=== PATIENT | female | born 1970 | race Caucasian/White ===

== ENCOUNTER → 2016-11-08 | Outpatient (CLI) | payer MEDICAID ==
[~2016-11-08] MED LIST: ALPR1T; Albuterol; BUTA-234 PO; CPR500T PO; CRS350T PO; DESV50TA PO; HYDR1TAB PO; LISI1TAB PO; LNS30CCR; MTP25TSR; NAPR-243 PO; NYST1POW15 TOP; OMEP-10 PO; PHEN200T16 PO; PREVACID; SRTR100T; SULF1TAB38 PO; [UNRECOGNIZED DRUG - CODE]
--- NOTE | 2016-11-08 15:49 | Diagnostic Imaging Report ---
PROCEDURE: MRI right joint upper extremity without contrast. TECHNIQUE: Multiplanar, multisequence non contrast-enhanced MRI of the right upper extremity was accomplished. INDICATION: Right shoulder pain. FINDINGS: There is no os acromiale or Hill-Sachs deformity. There is a longitudinal split tear seen within the long head of biceps tendon involving at least 4 cm of the tendon length prior to its horizontal course towards the biceps anchor at the labrum. This segment is less well defined although it appears that the tear is perhaps extending through this segment into the biceps anchor at the labrum itself. The labrum demonstrates increased signal in its superior segment concerning for tear. The supraspinatus and infraspinatus tendons demonstrate thickening and increased signal compatible with tendinosis and partial tear. There is tendinosis and intrasubstance tear in the subscapular tendon. The acromioclavicular joint demonstrates tiny inferior osteophytes. There is trace amount of fluid within the subacromial subdeltoid bursa. A small the glenohumeral joint effusion is seen. The muscle bulk and signal is within normal limits. IMPRESSION: 1. There is a longitudinal split tear involving the long head biceps tendon with possible extension into the biceps anchor at the labrum. Abnormal signal in the adjacent segments of the labrum is concerning for a SLAP tear. 2. 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 3. Rotator cuff tendinosis and intrasubstance partial tear. No full-thickness retracted tear. Dictated by: Dictated on workstation # [id number]
== END ==
LOC: RAD 14:02
PROVIDERS: ATTEND Nurse Practitioner Family
DX: S46.911A Strain of unspecified muscle, fascia and tendon at shoulder and upper arm level, right arm, initial encounter (principal); M75.91 Shoulder lesion, unspecified, right shoulder; X58.XXXA Exposure to other specified factors, initial encounter; Y99.8 Other external cause status
CPT/HCPCS: 73221

== ENCOUNTER 2017-03-06 16:48 | Emergency (ER) | payer MEDICAID ==
[~2017-03-06] VITALS: Ht 167.6 cm; Wt 99.8 kg
[2017-03-06] MEDS ORDERED: HYDR-3812 PO (17:23)
--- NOTE | 2017-03-06 17:23 | ED Lower Extremity ---
General Chief Complaint: Lower Extremity Stated Complaint: RT ANKLE INJ Nursing Triage Note: pt reports r ankle pain after tripping twice today. Nursing Sepsis Screen: No Definite Risk Source: patient, spouse Exam Limitations: no limitations History of Present Illness Time seen by provider: 17:17 Initial Comments 46-year-old female patient presents to the emergency department with complaints of twisting her ankle yesterday at her family member's house on a step. Also [place] it [place]. Complains of right ankle pain. Denies hitting her head or LOC. Patient is very drowsy. Spouse reports this is patient's usual state. Onset: other (yesterday and this afternoon) Pain/Injury Location: right ankle Method of Injury: twisted Modifying Factors: Worse With Movement Allergies and Home Medications Allergies Coded Allergies: No Known Drug Allergies (Verified , 12/11/07) Home Medications Alprazolam 1 Mg Tablet, BID, (Reported) Ciprofloxacin 500 Mg Tablet, 1 TAB PO BID, (Reported) Desvenlafaxine Succinate 50 Mg Tab.sr.24h, 1 PO DAILY, (Reported) Hctz/Lisinopril 1 Each Tablet, 1 EACH PO DAILY, (Reported) Hydrocodone Bit/Acetaminophen 1 Each Tablet, 1 EACH PO Q6HR PRN, #10 Ref 0 Prescribed by: IKER DE OLIVEIRA DO on 01/02/11 1546 Hydrocodone/Acetaminophen 1 Each Tablet, 1 EACH PO Q6H PRN for PAIN, #14 Ref 0 Prescribed by: GISSEL ARANDA on 03/06/17 1723 Metoprolol Succinate 25 Mg Tab.sr.24h, DAILY, (Reported) Nystatin 1 Each Powder.ea., 0 TOP BID PRN, (Reported) SPRINKLE ON AFFECTED AREA Omeprazole 20 Mg Capsule.dr, 20 MG PO DAILY, (Reported) Trimethoprim/Sulfamethoxazole 1 Ea Tablet, 1 EA PO BID, (Reported) [Albuterol ] , (Reported) 2 PUFFS QID Constitutional: no symptoms reported Respiratory: no symptoms reported Cardiovascular: no symptoms reported Musculoskeletal: see HPI, No back pain, joint pain (rt ankle), joint swelling ( rt ankle), No neck pain Skin: No change in color Psychiatric/Neurological: Denies Headache, Denies Numbness, Denies Paresthesia , Denies Tingling, Denies Weakness All Other Systems Reviewed Negative Unless Noted: Yes (Negative excepted noted.) Past Akbzvww-Tvkqmo-Ulmbfd Hx Patient Social History Alcohol Use: Denies Use Recreational Drug Use: No Smoking Status: Current Everyday Smoker Type Used: Cigarettes Recent Foreign Travel: No Contact w/Someone Who Travel: No Recent Infectious Disease Expo: No Recent Hopitalizations: Yes (childbirth x6) Physical Abuse: No Sexual Abuse: No Mistreated: No Fear: No Immunizations Up To Date Date of Pneumonia Vaccine: Mar 30, 2008 Date of Influenza Vaccine: Feb 27, 2011 Surgeries History of Surgeries: Yes (c-sections x 6, lithrotripsy) Respiratory History of Respiratory Disorde: Yes Cardiovascular History of Cardiac Disorders: Yes (went to ED for rapid heart beat-told she was having PVC's) Neurological History of Neurological Disord: No Reproductive System Hx Reproductive Disorders: No (right breast abscess 12/10/07) Gastrointestinal History of Gastrointestinal Di: Yes Musculoskeletal History of Musculoskeletal Dis: No Endocrine History of Endocrine Disorders: Yes Psychosocial History of Psychiatric Problem: Yes Suicide Risk Score: 0 Integumentary History of Skin or Integumenta: No Blood Transfusions History of Blood Disorders: No Reviewed Nursing Assessment Reviewed/Agree w Nursing PMH: Yes Family Medical History Significant Family History: No Pertinent Family Hx Physical Exam Vital Signs Capillary Refill : Less Than 3 Seconds General Appearance: WD/WN, no apparent distress, other (patient is very drowsy (spouse reports this is her usual state)) Cardiovascular: regular rate, rhythm, no murmur Respiratory: lungs clear, normal breath sounds, no respiratory distress Legs: bilateral leg non-tender, bilateral leg normal inspection, bilateral leg normal range of motion, bilateral leg no evidence of injury Knees: bilateral knee non-tender, bilateral knee normal inspection, bilateral knee normal range of motion, bilateral knee no evidence of injury Ankles: left ankle non-tender, left ankle normal inspection, left ankle normal range of motion, left ankle no evidence of injury, right ankle bone tenderness ( lateral ankle mild tenderness), right ankle limited range of motion, right ankle pain, right ankle soft tissue tenderness (lateral ankle), right ankle swelling (lateral ankle swelling) Feet: bilateral foot non-tender, bilateral foot normal inspection, bilateral foot normal range of motion, bilateral foot no evidence of injury Neurologic/Tendon: normal sensation, normal motor functions, normal tendon functions, responds to pain, no evidence tendon injury Neurologic/Psychiatric: no motor/sensory deficits, alert, normal mood/affect, oriented x 3 Skin: normal color, warm/dry, No ecchymosis Progress/Results/Core Measures Results/Orders My Orders Orders - GISSEL ARANDA Ankle, Right, 3 Views (03/06/17 16:55) Steplite (03/06/17 17:26) Crutches (03/06/17 17:26) Hydrocodone/Apap 5/325 Tablet (Lortab 5 (03/06/17 17:26) Vital Signs/I&O Blood Pressure Mean: 86 Diagnostic Imaging Diagonstic Imaging: Xray Plain Films/CT/US/NM/MRI: ankle Comments FINDINGS: Three views of the right ankle show a nondisplaced avulsion fracture of the tip of the lateral malleolus. The medial malleolus and posterior malleolus appear intact. The ankle mortise is preserved. IMPRESSION: Nondisplaced transverse fracture of the tip of lateral malleolus. Dictated by: Dictated on workstation # [id number] Reviewed: Reviewed by Me (radiology report reviewed by me) Departure Communication Progress Notes Diagnostic findings discussed with the patient. Patient is A/Ox3, NAD. Patient 's eyes are open and speech is normal. Patient placed in a step light boot again given instruction on crutches. Patient given 1 dose of hydrocodone in the emergency department. Plan for discharge to home with follow-up as an outpatient with Dr. Zendejas. Impression Impression: Primary Impression: Fracture of fibula, distal, closed Qualified Codes: S82.831A - Other fracture of upper and lower end of right fibula, initial encounter for closed fracture Disposition: 01 HOME, SELF-CARE Condition: Improved Departure-Patient Inst. Decision time for Depature: 17:52 Referrals: JULIAN CHESTER MD (PCP) Primary Care Physician VIKTORIYA SCHMIDT APRN (Family) Primary Care Physician BRITTNEE ZENDEJAS MD Patient Instructions: Ankle Fracture (DC) Add. Discharge Instructions: All discharge instructions reviewed with patient and/or family. Voiced understanding. Medications as directed. Elevate the right lower extremity on pillows. Steplite boot and crutches as instructed. Partial weight bearing on the right leg to help steady yourself only. Follow-up with Dr. Zendejas for recheck within the next 7 days. Call tomorrow morning for appointment time. Return to the emergency department for worsened symptoms or any other concerns. Scripts Hydrocodone/Acetaminophen (Hydrocodon -Acetaminophen 5-325) 1 Each Tablet 1 EACH PO Q6H Y for PAIN, #14 TAB 0 Refills Prov: GISSEL ARANDA 03/06/17 GISSEL ARANDA Mar 06, 2017 17:23
[2017-03-06] MEDS ORDERED: HYDROcodone/APAP 5 MG/325 MG (LORTAB) TAB PO STA (17:26)
--- NOTE | 2017-03-06 17:30 | Diagnostic Imaging Report ---
INDICATION: Right ankle injury. FINDINGS: Three views of the right ankle show a nondisplaced avulsion fracture of the tip of the lateral malleolus. The medial malleolus and posterior malleolus appear intact. The ankle mortise is preserved. IMPRESSION: Nondisplaced transverse fracture of the tip of lateral malleolus. Dictated by: Dictated on workstation # [id number]
[2017-03-06 18:00] VITALS: BP 110/74
== END 2017-03-06 18:00 | disposition home or self-care (01) ==
LOC: EDUNIT# 16:48 → ER 16:50
DX: S82.64XA Nondisplaced fracture of lateral malleolus of right fibula, initial encounter for closed fracture (principal); F17.210 Nicotine dependence, cigarettes, uncomplicated; Z87.59 Personal history of other complications of pregnancy, childbirth and the puerperium; Z87.442 Personal history of urinary calculi; X50.0XXA Overexertion from strenuous movement or load, initial encounter; Y92.480 Sidewalk as the place of occurrence of the external cause
CPT/HCPCS: 73610; 99283

== ENCOUNTER → 2017-03-21 | Outpatient (CLI) | payer MEDICAID ==
[~2017-03-21] MED LIST changes: +HYDR-3812 PO
== END ==
LOC: WOUNDCARE 13:51
PROVIDERS: ATTEND Surgery
DX: E11.622 Type 2 diabetes mellitus with other skin ulcer (principal); L98.492 Non-pressure chronic ulcer of skin of other sites with fat layer exposed; L03.113 Cellulitis of right upper limb
CPT/HCPCS: 11042

== ENCOUNTER → 2017-04-04 | Outpatient (CLI) | payer MEDICAID | LOC: WOUNDCARE 14:58 | PROVIDERS: ATTEND Surgery | DX: E11.622 Type 2 diabetes mellitus with other skin ulcer (principal); L98.492 Non-pressure chronic ulcer of skin of other sites with fat layer exposed; L03.113 Cellulitis of right upper limb | CPT/HCPCS: 11042 ==

== ENCOUNTER → 2017-04-06 | Outpatient (CLI) | payer MEDICAID ==
[2017-04-06 12:46] LABS: BASOPHILS # (AUTO) 0.1 10^3/uL (0.0-0.1); BASOPHILS % (AUTO) 1 % (0-10); EOSINOPHILS # (AUTO) 0.3 10^3/uL (0.0-0.3); EOSINOPHILS % (AUTO) 3 % (0-10); LYMPHOCYTES # (AUTO) 3.5 X 10^3 (1.0-4.0); LYMPHOCYTES % (AUTO) 45 % (12-44); MEAN CORPUSCULAR HEMOGLOBIN 26 PG (25-34); MEAN CORPUSCULAR HGB CONC 31 G/DL (32-36); MEAN CORPUSCULAR VOLUME 83 FL (80-99); MEAN PLATELET VOLUME 9.9 FL (7.4-10.4); MONOCYTES # (AUTO) 0.6 X 10^3 (0.0-1.0); MONOCYTES % (AUTO) 8 % (0-12); NEUTROPHILS # (AUTO) 3.4 X 10^3 (1.8-7.8); NEUTROPHILS % (AUTO) 43 % (42-75); PLATELET COUNT 332 10^3/uL (130-400); RED BLOOD COUNT 4.36 10^6/uL (4.35-5.85); RED CELL DISTRIBUTION WIDTH 16.2 % (10.0-14.5); WHITE BLOOD COUNT 7.8 10^3/uL (4.3-11.0)
[2017-04-06 13:14] LABS: ALBUMIN 3.3 GM/DL (3.2-4.5); BILIRUBIN,TOTAL 0.2 MG/DL (0.1-1.0); CALCIUM 8.6 MG/DL (8.5-10.1); CREATININE SERUM 1.21 MG/DL (0.60-1.30); POTASSIUM 4.2 MMOL/L (3.6-5.0); TOTAL PROTEIN 7.2 GM/DL (6.4-8.2)
== END ==
LOC: LAB 12:29
PROVIDERS: ATTEND Surgery
DX: E11.622 Type 2 diabetes mellitus with other skin ulcer (principal); L03.113 Cellulitis of right upper limb; L98.492 Non-pressure chronic ulcer of skin of other sites with fat layer exposed
CPT/HCPCS: 36415; 80053; 83036; 85025

== ENCOUNTER → 2020-06-25 | Outpatient (CLI) | payer MEDICAID ==
[~2020-06-25] MED LIST changes: +ACHD5005 PO; -HYDR-3812 PO
--- NOTE | 2020-06-25 16:32 | Diagnostic Imaging Report ---
INDICATION: Routine screening. COMPARISON is made with prior mammograms from 09/22/2011 and 05/12/2008. 2-D and 3-D bilateral screening mammography was performed with CAD. Scattered fibroglandular densities are identified bilaterally. There are scattered benign calcifications in both breasts. No mass or malignant appearing microcalcifications are seen. Axillae are unremarkable. IMPRESSION: BI-RADS Category 2. No mammographic features suspicious for malignancy are identified. ACR BI-RADS Category 2: Benign findings. Result letter will be mailed to the patient. Note: At least 10% of breast cancer is not imaged by mammography. Dictated by: Dictated on workstation # [id number]
== END ==
LOC: RAD 15:00
PROVIDERS: ATTEND Pediatrics
DX: Z12.31 Encounter for screening mammogram for malignant neoplasm of breast (principal); N60.01 Solitary cyst of right breast
CPT/HCPCS: 77063; 77067